=== PATIENT | male | born 1955 | race Caucasian/White ===

== ENCOUNTER 2021-10-08 06:30 | Day surgery (SDC) | payer MEDICARE, SELFPAY ==
[2021-10-01 15:55] VITALS: BMI 34.5
--- NOTE | 2021-10-07 09:54 | P.CONAN_ITS ---
HPI - Anesthesia Eval Consult details Narrative: 66yo M for Upper Endoscopy and Colonoscopy *Hx of DI* PMFSH Past Medical History Medical History Barretts esophagus Diabetes Elevated cholesterol GERD (gastroesophageal reflux disease) History of difficult intubation HTN (hypertension) MARIANO treated with BiPAP Surgical History Surgical History (Updated 10/01/21 @ 15:37 by Samantha Uriostegui RN) History of back surgery History of cataract extraction History of esophagogastroduodenoscopy (EGD) Hx of appendectomy Hx of colonoscopy Hx of knee surgery Social History Social History Are you a primary physician locums urgent care to a significant other at home: No Do you presently have visiting nurse or other home services: No Have you been hit, kicked, punched, or otherwise hurt by someone within the past year? If so, by whom?: No Are you DNR?: No Advance Directives: No Advance Directives Information Provided: No Advance Directives on File: No Recently lost weight without trying: No Eating poorly because of decreased appetite: No Nutrition Risks: No Nutritional Risk Meds Allergies Allergy/AdvReac Type Severity Reaction Status Date / Time Penicillins [PENICILLINS] Allergy Intermediate RASH Verified 10/08/21 07:25 Home Medications Medication Instructions Recorded Confirmed Last Taken Type amlodipine 5 mg tablet 1 tab PO DAILY 10/01/21 10/01/21 10/08/21 History aspirin 81 mg tablet,delayed 81 mg PO DAILY 10/01/21 10/01/21 10/05/21 History release atorvastatin 10 mg tablet 1 tab PO DAILY 10/01/21 10/01/21 Unknown History cinnamon bark 500 mg capsule 1,000 mg PO DAILY 10/01/21 10/01/21 Unknown History (Cinnamon) cranberry 400 mg capsule 400 mg PO DAILY 10/01/21 10/01/21 Unknown History dulaglutide 0.75 mg/0.5 mL 0.5 ml subcut QWEEK 10/01/21 10/01/21 Unknown History subcutaneous pen injector (Trulicity) fenofibrate nanocrystallized 145 1 tab PO DAILY 10/01/21 10/01/21 Unknown History mg tablet glimepiride 2 mg tablet 2 mg PO DAILY 10/01/21 10/01/21 Unknown History metformin 1,000 mg tablet 1 tab PO BID 10/01/21 10/01/21 Unknown History multivitamin 1 tab PO DAILY 10/01/21 10/01/21 Unknown History nabumetone 750 mg tablet 1 tab PO BID PRN Pain 10/01/21 10/01/21 Unknown History olmesartan 40 mg tablet 1 tab PO DAILY 10/01/21 10/01/21 Unknown History omega 7-ncr-nyt-fish oil 1,200 mg cap PO 10/01/21 10/01/21 History (144 mg-216 mg) capsule (Fish Oil) pantoprazole 40 mg tablet,delayed 40 mg PO DAILY 10/01/21 10/01/21 10/08/21 History release (Protonix) sitagliptin 100 mg tablet (Januvia) 1 tab PO DAILY 10/01/21 10/01/21 Unknown History Exam Exam Date and Time: October 07, 2021 0954 Height,Weight and Vital Signs: Height 6 ft Weight 115.666 kg Assessment and Plan Assessment Anesthesia Assessment: Chart Reviewed
[2021-10-08 06:44] VITALS: BP 183/89; PULSE 83; RESP 17; TEMP 36.1; O2SAT 95
[2021-10-08 06:46] LABS: Glucose, Whole Blood 161 mg/dL (60-115)
[2021-10-08 06:50] VITALS: BP 148/72
[2021-10-08] MEDS: Lactated Ringers 1,000 ML 100 ML IVCONT (06:58)
--- NOTE | 2021-10-08 07:15 | P.CONAN_ITS ---
[facility] Past Medical History Medical History Barretts esophagus Diabetes Elevated cholesterol GERD (gastroesophageal reflux disease) History of difficult intubation HTN (hypertension) MARIANO treated with BiPAP Family History Family history of problems with anesthesia: No Surgical History Surgical History (Updated 10/01/21 @ 15:37 by Samantha Uriostegui RN) History of back surgery History of cataract extraction History of esophagogastroduodenoscopy (EGD) Hx of appendectomy Hx of colonoscopy Hx of knee surgery History of Problems with Anesthesia: No Social History Social History Are you a primary acute care physician to a significant other at home: No Do you presently have visiting nurse or other home services: No Have you been hit, kicked, punched, or otherwise hurt by someone within the past year? If so, by whom?: No Are you DNR?: No Advance Directives: No Advance Directives Information Provided: No Advance Directives on File: No Recently lost weight without trying: No Eating poorly because of decreased appetite: No Nutrition Risks: No Nutritional Risk Meds Allergies Allergy/AdvReac Type Severity Reaction Status Date / Time Penicillins [PENICILLINS] Allergy Intermediate RASH Unverified 12/29/19 17:00 Active Medications: Current Medications Lactated Ringer's (Lr) 1,000 mls @ 100 mls/hr IVCONT .Q10H RYAN Last Admin: 10/08/21 06:58 Dose: 100 mls/hr Home Medications Medication Instructions Recorded Confirmed Last Taken Type amlodipine 5 mg tablet 1 tab PO DAILY 10/01/21 10/01/21 10/08/21 History aspirin 81 mg tablet,delayed 81 mg PO DAILY 10/01/21 10/01/21 10/05/21 History release atorvastatin 10 mg tablet 1 tab PO DAILY 10/01/21 10/01/21 Unknown History cinnamon bark 500 mg capsule 1,000 mg PO DAILY 10/01/21 10/01/21 Unknown History (Cinnamon) cranberry 400 mg capsule 400 mg PO DAILY 10/01/21 10/01/21 Unknown History dulaglutide 0.75 mg/0.5 mL 0.5 ml subcut QWEEK 10/01/21 10/01/21 Unknown History subcutaneous pen injector (Trulicity) fenofibrate nanocrystallized 145 1 tab PO DAILY 10/01/21 10/01/21 Unknown History mg tablet glimepiride 2 mg tablet 2 mg PO DAILY 10/01/21 10/01/21 Unknown History metformin 1,000 mg tablet 1 tab PO BID 10/01/21 10/01/21 Unknown History multivitamin 1 tab PO DAILY 10/01/21 10/01/21 Unknown History nabumetone 750 mg tablet 1 tab PO BID PRN Pain 10/01/21 10/01/21 Unknown History olmesartan 40 mg tablet 1 tab PO DAILY 10/01/21 10/01/21 Unknown History omega 9-smh-erw-fish oil 1,200 mg cap PO 10/01/21 10/01/21 History (144 mg-216 mg) capsule (Fish Oil) pantoprazole 40 mg tablet,delayed 40 mg PO DAILY 10/01/21 10/01/21 10/08/21 History release (Protonix) sitagliptin 100 mg tablet (Januvia) 1 tab PO DAILY 10/01/21 10/01/21 Unknown History Exam Exam Date and Time: October 08, 2021 0715 Height,Weight and Vital Signs: Height 6 ft Weight 115.666 kg Last Vital Signs Temp 96.9 F 10/08/21 06:44 Pulse 83 10/08/21 06:44 Resp 17 10/08/21 06:44 BP 148/72 H 10/08/21 06:50 Pulse Ox 95 10/08/21 06:44 O2 Del Method 10/08/21 06:44 Pertinent Lab Results Pertinent Lab Results: Laboratory Tests 10/08/21 06:41 POC Glucose 161 H Airway Mallampati Class: III TM Dist: >3cm Neck ROM: Full Loose/Missing/Broken Teeth: No Heart: rrr Lungs: clear Assessment and Plan Final Anesthetic Review Family History of Problems with Anesthesia: No History of Problems with Anesthesia: No ASA Class: III Final Preanesthetic Review: No Changes in Pt Med Stat, Meds/Allgs Chart Reviewed, Consent Obtained/Reviewed and Anes Risks/Benef Reviewed Patient Risk: High Procedure Risk: Low Anesthetic Plan Anesthetic Plan: MAC: Disposition: Standard PACU
--- NOTE | 2021-10-08 07:17 | P.HPSUR_ITS ---
Pre-Procedural Eval Section A Date of Service: 10/08/21 Section B Chief Complaint: edwards's esophagus,screeing Details of Present Illness: see H&P no changes Relevant Family History (Specify if Yes): No Relevant Social History: None Present Medications: see Short Stay Collaborative assessment Medical History: No relevant PMH Allergies: Allergies Allergy/AdvReac Type Severity Reaction Status Date / Time Penicillins [PENICILLINS] Allergy Intermediate RASH Unverified 12/29/19 17:00 Review of Systems Sugical H&P ROS: Negative: Constitution, Cardiovascular, Respiratory, Neurological, Psychiatric, Hem-Onc, Allergic/Immunologic, Gastrointestinal, Genitourinary, Musculoskeletal, Integumentary, Endocrine and Eyes/Ears/Nose/Throat Exam Surgical H&P Exam: Normal: HEENT, Normal: Heart, Normal: Lungs, Normal: Ext remities, Normal: Abdomen, Normal: Skin and Normal: Neurological Plan Diagnosis/Plan: Unchanged I have reviewed the history and physical and performed a pertinent physical examination on my patient. No changes have occurred unless specified.
[2021-10-08 08:21] VITALS: BP 115/58; PULSE 92; RESP 22; TEMP 37.1; O2SAT 94
--- NOTE | 2021-10-08 08:27 | P.BOP_ITS ---
Brief Operative Note Date of Service: 10/08/21 Pre-op diagnosis: barretts,screening Post-op diagnosis: same (colon and gastric polyps) Surgeon: Mart Dougherty Anesthesia: MAC Was an Stevedoring Superintendent used for this Procedure?: No Estimated blood loss (mL): 5 Pathology: other (see req) Condition: stable Disposition: PACU
[2021-10-08 08:36] VITALS: BP 127/62; PULSE 81; RESP 20; TEMP 36.8; O2SAT 95
--- NOTE | 2021-10-08 19:55 | OP_ITS ---
SURGEON: Mart Dougherty MD INDICATIONS: Camacho esophagus and colon cancer screening. PREOPERATIVE DIAGNOSIS: POSTOPERATIVE DIAGNOSIS: PROCEDURE PERFORMED: Upper endoscopy with biopsy and snare polypectomy. Colonoscopy to the terminal ileum with biopsy. ESTIMATED BLOOD LOSS: COMPLICATIONS: ANESTHESIA: ASSISTANTS: SPECIMENS: MEDICATIONS: Monitored anesthesia care. DESCRIPTION OF PROCEDURE: History and physical were performed. The risks and benefits of the procedure were explained to the patient. Informed consent was obtained. The patient was placed in the left lateral decubitus position. A digital rectal exam was performed and was found to be normal. The Olympus pediatric video colonoscope was introduced into the rectum and advanced to the cecum without difficulty. The cecum was identified by transillumination, palpation, and identification of ileocecal valve. Examination was performed and the scope was removed. He tolerated the procedure well, was repositioned for upper endoscopy. The Olympus video gastroscope was introduced into the esophagus, stomach, and duodenum. Examination was performed and the scope was removed. He tolerated the procedure well and was returned to recovery area in stable condition. FINDINGS: Colonoscopy: The terminal ileum was normal. The visualized colonic mucosa was normal. There were 2 polyps, which were less than 5 mm and removed with biopsy forceps. These were located in the right colon and a 20 cm. There was moderate diverticulosis of the sigmoid. The quality of the prep was good. Retroflexed examination was normal. UPPER ENDOSCOPY: Esophagus: The esophagus showed an irregular EG junction and a small hiatal hernia. Biopsies were obtained from the EG junction. There were no raised lesions or ulcerated areas. Stomach: The stomach showed multiple gastric polyps, which had been identified at the previous endoscopy. The largest measured approximately 2 cm and was removed with a hot snare. The polyp could not be recovered due to technical reasons. Duodenum: The bulb and second portion were normal. IMPRESSION: 1. Camacho esophagus. 2. Gastric polyps. 3. Colon polyps. RECOMMENDATION: Follow up the biopsy results. MD MARITZA Kamara/VICKY / [id number]
== END 2021-10-08 09:10 | disposition home or self-care (01) ==
PROVIDERS: PCP Family Medicine; Visit Provider Internal Medicine Gastroenterology
PROC: (CPT 45380; principal; 2021-10-08 07:30)
DX: Z12.11 Encounter for screening for malignant neoplasm of colon (principal); Z86.010 Personal history of colon polyps; K57.30 Diverticulosis of large intestine without perforation or abscess without bleeding; K22.70 Barrett's esophagus without dysplasia; K31.7 Polyp of stomach and duodenum; K44.9 Diaphragmatic hernia without obstruction or gangrene; K21.9 Gastro-esophageal reflux disease without esophagitis; E78.00 Pure hypercholesterolemia, unspecified; G47.33 Obstructive sleep apnea (adult) (pediatric); E11.9 Type 2 diabetes mellitus without complications; Z79.84 Long term (current) use of oral hypoglycemic drugs; Z79.899 Other long term (current) drug therapy; Z99.89 Dependence on other enabling machines and devices; Z79.82 Long term (current) use of aspirin; Z88.0 Allergy status to penicillin; Z87.891 Personal history of nicotine dependence
CPT/HCPCS: 45380; 43251; 43239; 82947; 88305